=== PATIENT | female | born 1950 | race Caucasian/White ===

== ENCOUNTER → 2018-09-22 10:36 | Outpatient (CLI) | payer OTHER, SELFPAY ==
[2018-09-22 12:09] LABS: Add Manual Diff / Slide Review NO; Basophils Percent Auto 0.6 % (0-2); Eosinophils Percent Auto 1.4 % (2-4); Hematocrit 37.7 % (36-46); Lymphocytes Percent Auto 29.1 % (25-40); Mean Corpuscular HGB Conc 31.9 % (30-36); Mean Corpuscular Hemoglobin 20.6 PG (26-34); Mean Corpuscular Volume 64.7 fL (80-100); Monocytes Percent Auto 10.9 % (3-14); Neutrophils Absolute Auto 3800 /uL (3000-5900); Platelet Count 283 X10^3/uL (150-400); Red Blood Cell Count 5.82 X10^6/uL (4.0-5.2); Red Cell Distribution Width 16.2 % (11.6-14.8); White Blood Cell Count 6.6 X10^3/uL (4.5-11.0)
[2018-09-22 12:38] LABS: Alanine Aminotransferase 24 IU/L (9-52); Albumin 4.5 g/dL (3.5-5.0); Albumin Globulin Ratio 1.3 (1.0-2.8); Alkaline Phosphatase 76 U/L (38-126); Aspartate Aminotransferase 25 IU/L (14-36); BUN Creatinine Ratio 27.5 (6-22); Bilirubin Total 0.6 mg/dL (0.2-1.3); Blood Urea Nitrogen 22 mg/dL (7-17); Calcium 9.1 mg/dL (8.4-10.2); Carbon Dioxide 26 mmol/L (22-32); Chloride 105 mmol/L (98-107); Cholesterol 236 mg/dL (140-199); Estimated Glomerular Filt Rate > 60.0 mL/min (>60); Globulin 3.4 g/dL (1.7-4.1); Glucose 84 mg/dL (80-110); HDL Cholesterol 69 mg/dL (40-60); HEMOLYSIS < 15 (0-50); LDL Cholesterol Calculated 146 mg/dL (<100); Potassium 4.1 mmol/L (3.4-5.1); Sodium 143 mmol/L (137-145); Total Protein 7.9 g/dL (6.3-8.2); Triglycerides 104 mg/dL (35-150)
[2018-09-22 13:01] LABS: Anisocytosis 1+; Microcytosis 1+; RBC Morphology S
[2018-09-22 13:30] LABS: Thyroid Stimulating Hormone 2.21 uIU/mL (0.47-4.68)
== END ==
PROVIDERS: Family Provider Family Medicine; PCP Family Medicine; Visit Provider Family Medicine
DX: Z13.220 Encounter for screening for lipoid disorders (principal); Z87.09 Personal history of other diseases of the respiratory system
CPT/HCPCS: 80053; 80061; 84443; 85025

== ENCOUNTER → 2018-10-09 13:38 | Outpatient (CLI) | payer OTHER, SELFPAY | PROVIDERS: PCP Family Medicine; Visit Provider Family Medicine | DX: M81.0 Age-related osteoporosis without current pathological fracture (principal); Z78.0 Asymptomatic menopausal state | CPT/HCPCS: 77080 ==

== ENCOUNTER → 2019-05-24 14:37 | Outpatient (CLI) | payer MEDICARE, SELFPAY ==
[2019-05-26 19:46] LABS: Fecal Immunochemical Test NOT DETECTED (NOT DETECTED)
== END ==
PROVIDERS: PCP Family Medicine; Visit Provider Family Medicine
DX: Z12.11 Encounter for screening for malignant neoplasm of colon (principal)
CPT/HCPCS: 82274

== ENCOUNTER → 2019-09-03 16:31 | Outpatient (CLI) | payer MEDICARE, SELFPAY ==
--- NOTE | 2019-09-03 16:45 | DI.RAD.S_ITS ---
PROCEDURE: XR HIP W PEL IF DONE RT 2V INDICATIONS: chronic hip pain TECHNIQUE: AP pelvis with lateral view(s) of the right hip(s). COMPARISON: None. FINDINGS: Bones: No fractures or dislocations. Pelvic ring appears intact. No suspicious bony lesions. Lower lumbar spondylosis. Mild bilateral hip degeneration. Soft tissues: The visualized bowel gas pattern is normal. No suspicious soft tissue calcifications. IMPRESSION: Mild bilateral hip degeneration. If the patient's pain or other symptoms persist, consider further evaluation with MRI Lower lumbar spondylosis Dictated by: Kwaku Nelson M.D. on 09/03/2019 at 17:09 Approved by: Kwaku Nelson M.D. on 09/03/2019 at 17:11
== END ==
PROVIDERS: PCP Family Medicine; Visit Provider Family Medicine
DX: M25.551 Pain in right hip (principal); M16.0 Bilateral primary osteoarthritis of hip; M47.816 Spondylosis without myelopathy or radiculopathy, lumbar region
CPT/HCPCS: 73502

== ENCOUNTER → 2019-10-01 10:06 | Outpatient (CLI) | payer MEDICARE, SELFPAY ==
[2019-10-01 10:52] LABS: Add Manual Diff / Slide Review NO; Basophils Absolute Auto 0 /uL (0-100); Basophils Percent Auto 0.5 % (0-2); Eosinophils Absolute Auto 100 /uL (0-450); Eosinophils Percent Auto 1.4 % (2-4); Hematocrit 36.7 % (36-46); Hemoglobin 12.2 g/dL (12.0-16.0); Lymphocytes Absolute Auto 1900 /uL (1100-4500); Lymphocytes Percent Auto 31.6 % (25-40); Mean Corpuscular HGB Conc 33.2 % (30-36); Mean Corpuscular Hemoglobin 21.1 PG (26-34); Mean Corpuscular Volume 63.4 fL (80-100); Monocytes Absolute Auto 500 /uL (0-900); Monocytes Percent Auto 8.8 % (3-14); Neutrophils Absolute Auto 3400 /uL (1500-7000); Neutrophils Percent Auto 57.7 % (50-75); Platelet Count 267 X10^3/uL (150-400); Red Blood Cell Count 5.79 X10^6/uL (4.0-5.2); Red Cell Distribution Width 16.4 % (11.6-14.8); White Blood Cell Count 5.9 X10^3/uL (4.5-11.0)
[2019-10-01 11:12] LABS: Hypochromasia 1+; Microcytosis 2+
[2019-10-01 11:18] LABS: Alanine Aminotransferase 19 IU/L (<35); Albumin 4.5 g/dL (3.5-5.0); Albumin Globulin Ratio 1.4 (1.0-2.8); Alkaline Phosphatase 91 U/L (38-126); Aspartate Aminotransferase 28 IU/L (14-36); BUN Creatinine Ratio 23.8 (6-22); Bilirubin Total 0.7 mg/dL (0.2-1.3); Blood Urea Nitrogen 19 mg/dL (7-17); Calcium 9.5 mg/dL (8.4-10.2); Carbon Dioxide 26 mmol/L (22-32); Chloride 105 mmol/L (98-107); Estimated Glomerular Filt Rate > 60.0 mL/min (>60); Globulin 3.3 g/dL (1.7-4.1); Glucose 98 mg/dL (80-110); HEMOLYSIS < 15 (0-50); Potassium 4.3 mmol/L (3.4-5.1); Sodium 140 mmol/L (137-145); Total Protein 7.8 g/dL (6.3-8.2)
== END ==
PROVIDERS: PCP Family Medicine; Visit Provider Family Medicine
DX: D64.9 Anemia, unspecified (principal); D56.9 Thalassemia, unspecified
CPT/HCPCS: 36415; 80053; 85025

== ENCOUNTER 2019-10-08 13:54 | Emergency (ER) | payer MEDICARE, SELFPAY ==
[2019-10-08 14:02] VITALS: BP 149/88; PULSE 68; RESP 18; TEMP 36.5; O2SAT 18; BMI 23.8
--- NOTE | 2019-10-08 15:08 | PC.NURSE ---
patient states she has a cataract in L eye.
[2019-10-08] MEDS: ACETAMINOPHEN 325 MG TABLET 975 MG PO (15:46)
[2019-10-08] MEDS: PROPARACAINE 0.5% OPHTH SOL 1 DROPS EYE-RIGHT (15:47)
[2019-10-08] MEDS: FLUORESCEIN 1 MG STRIP EYE-RIGHT (15:47)
[2019-10-08 15:54] VITALS: BP 148/80; PULSE 74; RESP 18; O2SAT 100
[2019-10-08] MEDS: TET,DIPH,PERTUSS(ACELL),VAC/PF 0.5 ML SYRINGE IM (16:09)
--- NOTE | 2019-10-08 20:54 | ED.EYEPROB ---
HPI - Eye Problem <Felipe Cornejo [facility] - Last Filed: 10/08/19 21:02> General Chief complaint: Eye Problems Stated complaint: poked right eye with finger nail, redness, headach Time Seen by Provider: 10/08/19 15:17 Source: patient Mode of arrival: Family Vehicle Limitations: no limitations History of Present Illness HPI Narrative: This is a pleasant 68-year-old female, nonsmoker, who presents to ED after she accidentally poked her right eye while putting on makeup this morning at 11:30 a.m. Patient denies visual changes or decreased in vision. Patient usually wears glasses. Patient reports mild discomfort when patient closes her eyes forcefully and hard and denies foreign body sensation. Patient denies on blood thinner. Patient not sure last tetanus immunization. Patient reports seen by landscaping supervisor about 2 years ago after cataract surgery. Related Data Home Medications Medication Instructions Recorded Confirmed acyclovir 400 mg PO DAILY 10/08/19 10/08/19 sertraline [Zoloft] 75 mg PO DAILY 10/08/19 Previous Rx's Medication Instructions Recorded albuterol sulfate [Ventolin HFA] 2 puff INH SEE INSTRUCTIONS PRN #2 01/06/18 ea alprazolam 0.5 mg tablet 0.5 mg PO DAILY PRN #10 tab 09/09/19 Allergies Allergy/AdvReac Type Severity Reaction Status Date / Time No Known Drug Allergies Allergy Verified 10/08/19 14:07 Review of Systems <Felipe Cornejo [facility] - Last Filed: 10/08/19 21:02> Review of Systems Narrative: General: Denies fever, chills, fatigue, malaise, sweats. HEENT: See HPI. Denies sinus pain, ear pain, sore throat, difficulty swallowing, dizziness. Respiratory: Denies dyspnea, cough, wheezing, hemoptysis, sputum. Cardiovascular: Denies chest pain, palpitations, orthopnea, edema. Gastrointestinal: Denies nausea, vomiting, abdominal pain, diarrhea, constipation, melena. : Denies dysuria, frequency, incontinence, hematuria, urinary retention. Musculoskeletal: Denies weakness, joint pain or bony pain. Skin: Denies rash, skin lesions, or other. Neurologic: Denies weakness, headache, numbness, change in speech, confusion, seizures, incoordination. Psychiatric: No concerning psychosocial issues. 12-point review of systems is negative except for those stated above. Patient History <GILL Cox - Last Filed: 10/08/19 21:02> Medical History Chicken pox (Resolved) Generalized anxiety disorder (Acute) Hemorrhoid (Chronic ~1999) Herpes (Resolved) Measles (Resolved) Osteoarthritis (Chronic ~1999) Osteopenia (Chronic ~1999) Ovarian cyst (Chronic ~1994) Thalassemia (Chronic ~1949) Surgical History Anesthesia (Resolved) Status post appendectomy (~1956) Family History Father Cancer Mother Diabetes mellitus Heart disease Grandfather Stroke Grandmother Cancer Sister Ovarian cancer Social History marital status: occupational status: previously employed Smoking Status: Never smoker alcohol intake: current substance use type: does not use Smoking Status: Never smoker alcohol intake frequency: 0-2 drinks per day Alcohol type: beer, wine and hard liquor Substance Use Type: does not use Exam <GILL Cox - Last Filed: 10/08/19 21:02> Narrative Exam Narrative: General appearance: well developed, well nourished, in no acute distress. Head: normocephalic, atraumatic, no scalp lesions, non-tender. ENT: R inner corner subconjunctiva hemorrhage appreciated. Visual acuity right eye 20/30, left eye 20/100, bilateral 20/40. There is no uptake with the fluorescein staining with Wood's lamp examination. IOP average 18. Bilateral auditory canals and tympanic membranes clear. Hearing grossly intact. Nose without bleeding, purulent discharge, septal hematoma or deviation. Turbinate without erythema or swelling. Facial sinuses nontender to palpate. Mucous membrane moist, no mucosal lesion. Throat without erythema, tonsillar hypertrophy or exudate. Uvula in midline, airway patent. Neck/Thyroid: neck supple, full range of motion, no visible masses or meningeal signs. No JVD, non-tender without lymphadenopathy. Skin: no suspicious rashes, lesions over visible areas. Warm and dry and appropriate color for ethnicity. Heart: no clubbing, no cyanosis, no edema. S1 and S2 normal. RRR w/o murmurs, clicks, or bruits. Lungs: Breathing even and unlabored. No stridor. No accessory muscles used. Able to speak in full sentences. Chest: normal shape and expansion. Abdomen: non-obese, non-distended. Neurologic: alert and oriented. Cognitive exam, PHARMACEUTICAL OFFICER and PNS grossly intact on informal exam. Psych: good eye contact, normal affect. Initial Vital Signs Initial Vital Signs: Vital Signs Temperature 97.7 F 10/08/19 14:02 Pulse Rate 68 10/08/19 14:02 Respiratory Rate 18 10/08/19 14:02 Blood Pressure 149/88 H 10/08/19 14:02 Pulse Oximetry 18 L 10/08/19 14:02 <Nunu Orellana DO - Last Filed: 10/09/19 07:22> Initial Vital Signs Initial Vital Signs: Vital Signs Temperature 97.7 F 10/08/19 14:02 Pulse Rate 68 10/08/19 14:02 Respiratory Rate 18 10/08/19 14:02 Blood Pressure 149/88 H 10/08/19 14:02 Pulse Oximetry 18 L 10/08/19 14:02 Course <GILL Cox - Last Filed: 10/08/19 21:02> Orders Ordered: Discontinued Medications Acetaminophen (Tylenol) 975 mg PO NOW ONE Stop: 10/08/19 15:33 Last Admin: 10/08/19 15:46 Dose: 975 mg Documented by: MATTY Diphtheria/Tetanus/Acell Pertussis (Adacel) 0.5 ml IM .ONCE ONE Stop: 10/08/19 15:53 Last Admin: 10/08/19 16:09 Dose: 0.5 ml Documented by: MATTY Fluorescein Sodium (Ful-Sarah) 1 mg EYE-RIGHT NOW ONE Stop: 10/08/19 15:33 Last Admin: 10/08/19 15:47 Dose: 1 mg Documented by: MATTY Proparacaine HCl (Parcaine 0.5% Ophth Marielle) 1 drops EYE-RIGHT NOW ONE Stop: 10/08/19 15:33 Last Admin: 10/08/19 15:47 Dose: 1 drop Documented by: MATTY Vital Signs Vital signs: Vital Signs - 8 hr 10/08/19 14:02 10/08/19 15:54 Temperature 97.7 F Pulse Rate 68 74 Respiratory Rate 18 18 Blood Pressure 149/88 H Blood Pressure [Left Arm] 148/80 H Pulse Oximetry 18 L 100 <Nunu Orellana DO - Last Filed: 10/09/19 07:22> Orders Ordered: Discontinued Medications Acetaminophen (Tylenol) 975 mg PO NOW ONE Stop: 10/08/19 15:33 Last Admin: 10/08/19 15:46 Dose: 975 mg Documented by: MATTY Diphtheria/Tetanus/Acell Pertussis (Adacel) 0.5 ml IM .ONCE ONE Stop: 10/08/19 15:53 Last Admin: 10/08/19 16:09 Dose: 0.5 ml Documented by: MATTY Fluorescein Sodium (Ful-Sarah) 1 mg EYE-RIGHT NOW ONE Stop: 10/08/19 15:33 Last Admin: 10/08/19 15:47 Dose: 1 mg Documented by: MATTY Proparacaine HCl (Parcaine 0.5% Ophth Marielle) 1 drops EYE-RIGHT NOW ONE Stop: 10/08/19 15:33 Last Admin: 10/08/19 15:47 Dose: 1 drop Documented by: MATTY Vital Signs Vital signs: Vital Signs - 8 hr 10/08/19 14:02 10/08/19 15:54 Temperature 97.7 F Pulse Rate 68 74 Respiratory Rate 18 18 Blood Pressure 149/88 H Blood Pressure [Left Arm] 148/80 H Pulse Oximetry 18 L 100 MDM - Eye Problem <GILL Cox - Last Filed: 10/08/19 21:02> Differential Diagnosis Differential diagnosis: Likely corneal abrasion, hyphema and subconjunctival hemorrhage Medical Records Attestation: I reviewed the patient's medical records. [facility] Narrative Medical decision making narrative: This is a pleasant 68-year-old female presents to ED with right inner corner eye with subconjunctival hemorrhage. Visual acuity is intact and patient denies changes in vision. Patient is not currently on anticoagulant. There's no fluorescein uptake with the Wood's lamp examination indicating corneal abrasion. Physical exam is not consistent with hyphema. Patient denies eye discomfort unless when she closes her eyes forcefully and tightly. Normal IOP. Patient advised to use Tylenol as needed for discomfort and use intermittent cool compress next couple of days. Patient advised to avoid NSAIDs use for pain. Return precautions were discussed with patient and advised to follow up with landscaping supervisor/concrete mixer truck driver if there is any changes or other concerns. Patient verbalized understanding and agrees with the treatment plan. Discharge Plan Departure Patient Disposition: Home Clinical Impression: Subconjunctival hemorrhage of right eye Trauma to eye, right Qualifiers: Encounter type: initial encounter Qualified Code(s): S05.91XA - Unspecified injury of right eye and orbit, initial encounter Discharge Date/Time: 10/08/19 16:17 Instructions: DI for Subconjunctival Hemorrhage Activity Restrictions/Additional Instructions: You have been diagnosed with [subconjunctival R eye bleed. Wood lamp test does not show abrasion. You were medicated with Tylenol while in ED. Your Eye pressur was good and within angela. You can use cool packs for next couple of days on affected eye. Try to avoid aspirin or NSAID for discomfort]. What to do: *Take your medications as directed. *Follow up with your primary care provider and concrete mixer truck driver in 2-3 days, call for an appointment. Let them know you were seen in the ED and that we asked you to be seen in follow up. *Return to ED if you have any new, worsening, or concerning symptoms, such as [decrease vision, increasing eye discharge, discomfort, fever, redness spreading to eye leads and face, or any acute concerns]. Prescriptions: No Action albuterol sulfate [Ventolin HFA] 90 MCG/PUFF HFA aerosol inhaler 2 puff INH SEE INSTRUCTIONS PRNQty: 2 RF: 3 alprazolam 0.5 mg tablet 0.5 mg PO DAILY PRN (Reason: flying) Qty: 10 RF: 0 acyclovir 400 mg tablet 400 mg PO DAILY RF: 0 sertraline [Zoloft] 50 mg tablet 75 mg PO DAILY RF: 0 Referrals: Damaris Garcia DO [Primary Care Provider] -
== END 2019-10-08 16:17 | disposition home or self-care (01) ==
PROVIDERS: Emergency Provider Nurse Practitioner Family; PCP Family Medicine
DX: S05.91XA Unspecified injury of right eye and orbit, initial encounter (principal); H11.31 Conjunctival hemorrhage, right eye; Z23 Encounter for immunization
CPT/HCPCS: 90471; 99282; 99283; 90715

== ENCOUNTER → 2020-11-14 13:44 | Outpatient (CLI) | payer MEDICARE, SELFPAY ==
[2020-11-14] MEDS: COVID-19 VACC #1, MRNA(MOD) 100 MCG/0.5 ML VIAL IM (13:53)
== END ==
PROVIDERS: PCP Family Medicine; Visit Provider Internal Medicine
DX: Z23 Encounter for immunization (principal)
CPT/HCPCS: 0011A; 91301

== ENCOUNTER → 2020-12-12 14:11 | Outpatient (CLI) | payer MEDICARE, SELFPAY ==
[2020-12-12] MEDS: COVID-19 VACC #2, MRNA(MOD) 100 MCG/0.5 ML VIAL IM (14:13)
== END ==
PROVIDERS: PCP Family Medicine; Visit Provider Internal Medicine
DX: Z23 Encounter for immunization (principal)
CPT/HCPCS: 0012A; 91301

== ENCOUNTER → 2021-01-31 07:59 | Outpatient (CLI) | payer MEDICARE, SELFPAY ==
--- NOTE | 2021-01-31 08:01 | DI.MG.S_ITS ---
BILATERAL DIGITAL SCREENING MAMMOGRAM 3D/2D WITH CAD: 01/31/2021 CLINICAL: Routine screening. Comparison is made to exams dated: 11/18/2016 mammogram - [facility] and 10/09/2015 mammogram - [facility]. There are scattered fibroglandular elements in both breasts. Current study was also evaluated with a Computer Aided Detection (CAD) system. No significant masses, calcifications, or other findings are seen in either breast. There has been no significant interval change. IMPRESSION: NEGATIVE There is no mammographic evidence of malignancy. A 1 year screening mammogram is recommended. This exam was interpreted at Station ID: [id number]. NOTE: For mammograms, a report in lay terms will be sent to the patient. Approximately 15% of breast malignancies will not be visualized mammographically. In the management of a palpable breast mass, a negative mammogram must not discourage biopsy of a clinically suspicious lesion. Electronically Signed By: Chuckie mckeon/frederick:01/31/2021 11:18:47 letter sent: Normal Exam ACR BI-RADS Category 1: Negative 3341F
--- NOTE | 2021-01-31 08:01 | DI.RAD.S_ITS ---
PROCEDURE: XR DEXA AXIAL SKELETON INDICATIONS: osteporosis COMPARISON: [facility], CR, XR DEXA AXIAL SKELETON, 10/09/2018, 13:54. FINDINGS: This blank DEXA report has been sent in error by the PACS system. The correct and complete report will be forthcoming in 1-2 days. Thank you for your patience and understanding. Dictated by: Sara Carreno MD, PhD on 01/31/2021 at 17:03 Approved by: Sara Carreno MD, PhD on 01/31/2021 at 17:04
[2021-01-31 09:01] LABS: Add Manual Diff / Slide Review NO; Basophils Absolute Auto 0 /uL (0-100); Basophils Percent Auto 0.6 % (0-2); Eosinophils Absolute Auto 100 /uL (0-450); Eosinophils Percent Auto 1.7 % (2-4); Hematocrit 36.7 % (36-46); Hemoglobin 11.8 g/dL (12.0-16.0); Lymphocytes Absolute Auto 1900 /uL (1100-4500); Lymphocytes Percent Auto 27.5 % (25-40); Mean Corpuscular HGB Conc 32.2 % (30-36); Mean Corpuscular Hemoglobin 20.7 PG (26-34); Mean Corpuscular Volume 64.3 fL (80-100); Monocytes Absolute Auto 700 /uL (0-900); Monocytes Percent Auto 9.7 % (3-14); Neutrophils Absolute Auto 4200 /uL (1500-7000); Neutrophils Percent Auto 60.5 % (50-75); Red Cell Distribution Width 16.8 % (11.6-14.8)
[2021-01-31 09:05] LABS: Alanine Aminotransferase 22 IU/L (<35); Albumin 4.3 g/dL (3.5-5.0); Albumin Globulin Ratio 1.3 (1.0-2.8); Alkaline Phosphatase 85 U/L (38-126); Aspartate Aminotransferase 33 IU/L (14-36); BUN Creatinine Ratio 23.6 (6-22); Bilirubin Total 0.4 mg/dL (0.2-1.3); Blood Urea Nitrogen 21 mg/dL (7-17); Calcium 9.2 mg/dL (8.4-10.2); Carbon Dioxide 26 mmol/L (22-32); Chloride 104 mmol/L (98-107); Cholesterol 247 mg/dL (140-199); Estimated Glomerular Filt Rate > 60.0 mL/min (>60); Globulin 3.3 g/dL (1.7-4.1); Glucose 96 mg/dL (80-110); HDL Cholesterol 70 mg/dL (40-60); HEMOLYSIS < 15 (0-50); LDL Cholesterol Calculated 159 mg/dL (<100); Potassium 4.2 mmol/L (3.4-5.1); Sodium 138 mmol/L (137-145); Total Protein 7.6 g/dL (6.3-8.2); Triglycerides 88 mg/dL (35-150)
[2021-01-31 09:57] LABS: Basophilic Stippling 2+; Microcytosis 3+; Platelet Count 279 X10^3/uL (150-400); Polychromasia 1+
== END ==
PROVIDERS: PCP Family Medicine; Referring Provider Family Medicine; Visit Provider Family Medicine
DX: Z12.31 Encounter for screening mammogram for malignant neoplasm of breast (principal); M81.0 Age-related osteoporosis without current pathological fracture; Z78.0 Asymptomatic menopausal state; E78.5 Hyperlipidemia, unspecified; D56.9 Thalassemia, unspecified; Z13.1 Encounter for screening for diabetes mellitus
CPT/HCPCS: 36415; 77063; 77067; 77080; 80053; 80061; 85025

== ENCOUNTER → 2021-02-19 15:13 | Outpatient (CLI) | payer MEDICARE, SELFPAY ==
[2021-02-20 11:21] LABS: Fecal Immunochemical Test Positive (Negative)
== END ==
PROVIDERS: PCP Family Medicine; Referring Provider Family Medicine; Visit Provider Family Medicine
DX: Z12.11 Encounter for screening for malignant neoplasm of colon (principal)
CPT/HCPCS: 82274

== ENCOUNTER → 2021-04-02 11:02 | Outpatient (CLI) | payer MEDICARE, SELFPAY ==
[2021-04-02 12:02] LABS: COVID19 -Nasal RAPID Negative (Negative)
== END ==
PROVIDERS: PCP Family Medicine; Visit Provider Surgery
DX: Z20.822 Contact with and (suspected) exposure to COVID-19 (principal)
CPT/HCPCS: 87635; C9803

== ENCOUNTER 2021-04-03 14:09 | Day surgery (SDC) | payer MEDICARE, SELFPAY ==
--- NOTE | 2021-04-03 | PATH_ITS ---
[facility] Accession Number: [id number] . 01 Material submitted: . colon - POLYP AT 55CM . 01 Clinical history: . DX COLONOSCOPY UNDER GENERAL . 02 Diagnosis: Colon, Polyp at 55 cm, Biopsy: Colonic mucosa with no diagnostic abnormality, consistent with polypoid redundancy. Additional levels were examined. Negative for dysplasia and malignancy. MRV 04/06/2021 1349 Local . 02 Electronically signed: . Emmie Bolaños MD, Pathologist NPI- [id number] . 01 Gross description: . POLYP AT 55CM: Received in formalin is 1 fragment(s) of ceron, soft tissue measuring 0.4 x 0.3 x 0.2 cm submitted entirely in 1 cassette(s) /CHERRIE 04/04/2021 0543 Local . 02 Pathologist provided ICD-10: K63.5 . 02 CPT . 914512 Performed at: 01 [facility] [address] [facility] [place], [place], [place] [id number] MD Jimmy Pires MD Phone: [phone] Performed at: 02 [facility] [address] [place], [place] [id number] MD Emmie Bolaños MD Phone: [phone]
[2021-04-03 14:28] VITALS: BP 142/92; PULSE 103; RESP 16; TEMP 36.8; O2SAT 98; BMI 23.0
[2021-04-03] MEDS: SODIUM CHLORIDE 0.9% 1,000 ML 200 ML IV (14:42)
--- NOTE | 2021-04-03 14:54 | PM.PREOP ---
Pre-operative Note COVID-19 COVID-19 status: Negative Result date/Date tested (Pos, Neg/Pending): 04/03/21 Interval Note History & Physical reviewed/Exam performed by Physician: Yes Changes to H&P: No H&P completed within 30 days and has changed as indicated here:: Anesthesiologist consulted for deep sedation with propofol due to patient's inability to be properly sedated under conscious sedation with fentanyl and versed during past procedures.
--- NOTE | 2021-04-03 15:08 | PM.OP.ENDO ---
Operative Date/Time/Diagnoses Date of procedure: 04/03/21 Time of procedure: 15:08 Pre-op diagnosis: positive FIT test Post-op diagnosis: other (Single small polyp at 55 cm, diverticulosis) Procedure & Clinicians Study performed: Colonoscopy Polypectomy Jumbo forceps Same procedure as scheduled: Yes Indications: Positive FIT test Surgeon: Елена Awad Procedure Notes SCOAP/Timeout: Performed Procedure in detail: The patient was brought to the room and placed in left lateral decubitus position with all bony prominences padded. A time-out was performed and then the patient was given deep sedation and monitored anesthesia care by Dr. Alford. Once adequately sedated, the procedure was begun. A rectal exam was performed revealing no abnormalities. The colonoscope was then introduced to the rectum and advanced to the cecum in the usual fashion. The cecum was identified by the appendiceal orifice, the mucosal tri-fold, and the ileocecal valve. The scope was then retracted while rotating side to side and examining each mucosal fold. A small polyp was seen at 55 cm and removed Jumbo forceps. At the conclusion of the procedure retroflexion was performed and small grade 1-2 internal hemorrhoids without stigmata of bleeding were seen. Multiple hemorrhoidal skin tags were seen. The scope was then withdrawn from the rectum the procedure was concluded. The patient tolerated the procedure well and was transferred to the PACU in stable condition. Scope withdrawal time: 8 Findings: polyp Specimen(s): other (Polyp from 55 cm) Complications: none Impression: Diverticulosis, single small polyp Post-procedure Recommendations: Colonscopy in 10 years and High fiber diet (Consider adding a fiber supplement to prevent formation of more diverticula) Follow up: as needed Disposition: PACU
[2021-04-03 15:39] VITALS: BP 86/59; PULSE 77; RESP 12; TEMP 36.2; O2SAT 96
[2021-04-03 15:44] VITALS: BP 99/65; PULSE 72; RESP 13; O2SAT 96
--- NOTE | 2021-04-03 15:51 | SUR.PHASEI ---
Hand off report to Mathieu Melendez RN, pt comfortable, drinking fluids, denies pain
[2021-04-03 15:59] VITALS: BP 152/52; PULSE 72; RESP 20; TEMP 36.6; O2SAT 99
[2021-04-03 16:02] VITALS: BP 144/85; PULSE 66; RESP 15; TEMP 36.4; O2SAT 100
--- NOTE | 2021-04-03 16:13 | SUR.PHASEII ---
Pt ready to go, d/c instructions discussed, pt left when ready and in stable condition.
== END 2021-04-03 16:27 | disposition home or self-care (01) ==
PROVIDERS: PCP Family Medicine; Referring Provider Surgery; Visit Provider Surgery
PROC: 0DJD8ZZ Inspection of Lower Intestinal Tract, Via Natural or Artificial Opening Endoscopic (ICD-10-PCS; CPT 45378; principal; 2021-04-03 15:15)
DX: R19.5 Other fecal abnormalities (principal); F41.9 Anxiety disorder, unspecified; F32.9 Major depressive disorder, single episode, unspecified; D64.9 Anemia, unspecified; M81.0 Age-related osteoporosis without current pathological fracture; K57.30 Diverticulosis of large intestine without perforation or abscess without bleeding; K63.5 Polyp of colon
CPT/HCPCS: 45380; J2704; J3010

== ENCOUNTER → 2022-09-30 15:28 | Outpatient (CLI) | payer MEDICARE, SELFPAY ==
--- NOTE | 2022-09-30 15:29 | DI.RAD.S_ITS ---
PROCEDURE: XR SHOULDER RT MIN 2V INDICATIONS: Acute shoulder pain, fall TECHNIQUE: Three views of the shoulder were acquired. COMPARISON: None. FINDINGS: Bones: No fractures or dislocations. No suspicious bony lesions. Visualized ribs appear intact. Soft tissues: Faint ossification adjacent to the greater tuberosity, potentially calcific tendinitis. Questionable ossification projects over the glenohumeral joint. IMPRESSION: 1. No visible fracture, dislocation, or separation. 2. Possible calcific tendinitis. 3. Questionable osseous intra-articular fragment. Dictated by: Tasneem Miller M.D. on 09/30/2022 at 17:43 Approved by: Tasneem Miller M.D. on 09/30/2022 at 17:46
== END ==
PROVIDERS: PCP Family Medicine; Referring Provider Family Medicine; Visit Provider Family Medicine
DX: M25.511 Pain in right shoulder (principal)
CPT/HCPCS: 73030

== ENCOUNTER → 2022-10-29 08:58 | Outpatient (CLI) | payer MEDICARE, SELFPAY ==
[2022-10-29 10:11] LABS: Add Manual Diff / Slide Review NO; Basophils Absolute Auto 0 /uL (0-100); Basophils Percent Auto 0.3 % (0-2); Eosinophils Absolute Auto 100 /uL (0-450); Eosinophils Percent Auto 1.8 % (2-4); Hematocrit 38.7 % (36-46); Hemoglobin 12.3 g/dL (12.0-16.0); Lymphocytes Absolute Auto 2200 /uL (1100-4500); Lymphocytes Percent Auto 36.6 % (25-40); Mean Corpuscular HGB Conc 31.7 % (30-36); Mean Corpuscular Hemoglobin 20.3 PG (26-34); Mean Corpuscular Volume 64.1 fL (80-100); Monocytes Absolute Auto 500 /uL (0-900); Monocytes Percent Auto 8.5 % (3-14); Neutrophils Absolute Auto 3200 /uL (1500-7000); Neutrophils Percent Auto 52.8 % (50-75); Platelet Count 260 X10^3/uL (150-400); Red Blood Cell Count 6.03 X10^6/uL (4.0-5.2); Red Cell Distribution Width 15.7 % (11.6-14.8); White Blood Cell Count 6.1 X10^3/uL (4.5-11.0)
[2022-10-29 10:22] LABS: Anisocytosis 1+
[2022-10-29 10:34] LABS: Alanine Aminotransferase 19 IU/L (<35); Albumin 4.5 g/dL (3.5-5.0); Albumin Globulin Ratio 1.4 (1.0-2.8); Alkaline Phosphatase 94 U/L (38-126); Aspartate Aminotransferase 25 IU/L (14-36); BUN Creatinine Ratio 18.9 (6-22); Bilirubin Total 0.7 mg/dL (0.2-1.3); Blood Urea Nitrogen 14 mg/dL (7-17); Calcium 8.9 mg/dL (8.4-10.2); Carbon Dioxide 23 mmol/L (22-32); Chloride 103 mmol/L (98-107); Estimated Glomerular Filt Rate > 60 mL/min (>60); Globulin 3.3 g/dL (1.7-4.1); Glucose 86 mg/dL (80-110); HEMOLYSIS < 15 (0-50); Potassium 3.9 mmol/L (3.4-5.1); Sodium 137 mmol/L (137-145); Total Protein 7.8 g/dL (6.3-8.2)
== END ==
PROVIDERS: PCP Family Medicine; Referring Provider Family Medicine; Visit Provider Family Medicine
DX: D56.9 Thalassemia, unspecified (principal); F32.9 Major depressive disorder, single episode, unspecified; M81.0 Age-related osteoporosis without current pathological fracture; Z00.00 Encounter for general adult medical examination without abnormal findings
CPT/HCPCS: 36415; 80053; 85025

== ENCOUNTER → 2023-01-07 14:32 | Outpatient (CLI) | payer MEDICARE, OTHER, SELFPAY ==
[2023-01-07 15:19] LABS: HEMOLYSIS < 15 (0-50); Iron 81 ug/dL (37-170)
[2023-01-07 15:31] LABS: Percent Iron Saturation 26 % (15-50); Total Iron Binding Capacity 310 ug/dL (265-497); Transferrin 246 mg/dL (206-381)
[2023-01-07 15:41] LABS: T4 Total Thyroxine 7.11 ug/dL (5.5-11.0); Triiodothryronine T3 Uptake 33.5 % (23.5-40.5)
[2023-01-07 15:56] LABS: Ferritin 67 ng/mL (11-264)
== END ==
PROVIDERS: PCP Family Medicine; Referring Provider Dermatology; Visit Provider Dermatology
DX: L65.9 Nonscarring hair loss, unspecified (principal)
CPT/HCPCS: 36415; 82728; 83540; 83550; 84436; 84439; 84443; 84479

== ENCOUNTER → 2024-04-30 08:42 | Outpatient (CLI) | payer MEDICARE, SELFPAY ==
[2024-04-30 09:32] LABS: Add Manual Diff / Slide Review NO; Basophils Absolute Auto 0 /uL (0-100); Basophils Percent Auto 0.5 % (0-2); Eosinophils Absolute Auto 100 /uL (0-450); Eosinophils Percent Auto 2.3 % (2-4); Hematocrit 36.5 % (36-46); Hemoglobin 11.6 g/dL (12.0-16.0); Lymphocytes Absolute Auto 1700 /uL (1100-4500); Lymphocytes Percent Auto 28.8 % (25-40); Mean Corpuscular HGB Conc 31.7 % (30-36); Mean Corpuscular Hemoglobin 20.3 PG (26-34); Monocytes Absolute Auto 600 /uL (0-900); Monocytes Percent Auto 9.6 % (3-14); Neutrophils Absolute Auto 3500 /uL (1500-7000); Neutrophils Percent Auto 58.8 % (50-75); Platelet Count 263 X10^3/uL (150-400); Red Blood Cell Count 5.71 X10^6/uL (4.0-5.2); Red Cell Distribution Width 16.6 % (11.6-14.8); White Blood Cell Count 5.9 X10^3/uL (4.5-11.0)
[2024-04-30 09:55] LABS: Anisocytosis 2+
[2024-04-30 09:56] LABS: Microcytosis 2+
[2024-04-30 09:57] LABS: Alanine Aminotransferase 18 IU/L (<35); Albumin 4.5 g/dL (3.5-5.0); Albumin Globulin Ratio 1.5 (1.0-2.8); Alkaline Phosphatase 97 U/L (38-126); Aspartate Aminotransferase 28 IU/L (14-36); BUN Creatinine Ratio 33.8 (6-22); Bilirubin Total 0.7 mg/dL (0.2-1.3); Blood Urea Nitrogen 23 mg/dL (7-17); Carbon Dioxide 24 mmol/L (22-32); Chloride 109 mmol/L (98-107); Cholesterol 255 mg/dL (140-199); Estimated Glomerular Filt Rate > 60 mL/min (>60); Globulin 3.1 g/dL (1.7-4.1); Glucose 90 mg/dL (80-110); HDL Cholesterol 73 mg/dL (40-60); HEMOLYSIS 17 (0-50); LDL Cholesterol Calculated 152 mg/dL (<100); Potassium 4.6 mmol/L (3.4-5.1); Sodium 140 mmol/L (137-145); Total Protein 7.6 g/dL (6.3-8.2); Triglycerides 148 mg/dL (35-150)
[2024-04-30 10:27] LABS: TSH w/ Reflex to FT4 2.27 uIU/mL (0.47-4.68)
== END ==
PROVIDERS: PCP Student in an Organized Health Care Education/Training Program; Referring Provider Student in an Organized Health Care Education/Training Program; Visit Provider Student in an Organized Health Care Education/Training Program
DX: Z13.228 Encounter for screening for other metabolic disorders (principal); K59.00 Constipation, unspecified; F41.1 Generalized anxiety disorder
CPT/HCPCS: 36415; 80053; 80061; 84443; 85025

== ENCOUNTER → 2024-05-10 12:52 | Outpatient (CLI) | payer MEDICARE, SELFPAY ==
--- NOTE | 2024-05-10 12:53 | DI.RAD.S_ITS ---
PROCEDURE: XR DEXA AXIAL SKELETON INDICATIONS: bone density scan COMPARISON: [facility], , XR DEXA AXIAL SKELETON, 01/31/2021, 9:33. [facility], CR, XR DEXA AXIAL SKELETON, 10/09/2018, 13:54. FINDINGS: Lumbar Spine (L4 excluded due to increased density): Bone mineral density 0.824 g/cm2, T score -1.8, previously -1.5 Left Hip: Bone mineral density 0.710 g/cm2, T score -1.9, previously 2.2. Left Femoral Neck: Bone mineral density 0.580 g/cm2, T score -2.4, previously -2.5. Right Hip: Bone mineral density 0.632 g/cm2, T score 8th 2.5, previously -2.5. Right Femoral Neck: Bone mineral density 0.523 g/cm2, T score -2.9, previously -2.8. Fracture Risk Calculation (when applicable): Not reported due to osteoporosis. (T score greater or equal to -1.0 to: NORMAL) (T score from -1.1 to -2.4: OSTEOPENIA) (T score less than or equal to -2.5: OSTEOPOROSIS) IMPRESSION: Osteoporosis. Follow-up guidelines as follows: Osteoporosis: Consider a repeat DEXA and Vertebral Fracture Assessment (VFA) exam in 2 years or sooner if medically necessary, to reassess this patient's status. Osteopenia: Consider a repeat DEXA in 2-3 years to reassess this patient's status, or if there is a new clinical indication. Normal: Consider a repeat DEXA in 5 years or sooner, or if there is a new clinical indication. All treatment decisions require clinical judgment and consideration of individual patient factors, including patient preferences, comorbidities, previous drug use, risk factors not captured in the FRAX model (e.g., frailty, falls, vitamin D deficiency, increased bone turnover, interval significant decline in bone density ) and possible under- or over-estimation of fracture risk by FRAX. In addition, the NOF Guide recommends that FDA-approved medical therapies be considered in postmenopausal women and men age >= 50 years with a: * Hip or vertebral (clinical or morphometric) fracture * T-score of <=-2.5 at the spine or hip * Ten-year fracture probability by FRAX of >= 3% for hip fracture or >=20% for major osteoporotic fracture. People with diagnosed cases of osteoporosis or at high risk for fracture should have regular bone mineral density tests. For patients eligible for Medicare, routine testing is allowed once every 2 years. The testing frequency can be increased to one year for patients who have rapidly progressing disease, those who are receiving or discontinuing medical therapy to restore bone mass, or have additional risk factors. Dictated by: Yaniv Smiley M.D. on 05/10/2024 at 16:14 Approved by: Yaniv Smiley M.D. on 05/10/2024 at 16:15
--- NOTE | 2024-05-10 12:53 | DI.MG.S_ITS ---
BILATERAL DIGITAL SCREENING MAMMOGRAM 3D/2D WITH CAD: 05/10/2024 CLINICAL: Routine screening. Comparison is made to exams dated: 01/31/2021 mammogram, 11/18/2016 mammogram - [facility], and 10/09/2015 mammogram - [facility]. There are scattered areas of fibroglandular density in both breasts (category b / 25%-50% glandular tissue). Current study was also evaluated with a Computer Aided Detection (CAD) system. No significant masses, calcifications, or other findings are seen in either breast. There has been no significant interval change. IMPRESSION: NEGATIVE There is no mammographic evidence of malignancy. A 1 year screening mammogram is recommended. Based on the Tyrer Cuzick model (a risk assessment model) the patient's lifetime risk is 5.0% and her 10 year risk is 4.5%. According to the ACR, ACS, and NCCN guidelines, an annual breast MRI exam along with mammogram is recommended if the patient's lifetime risk is 20% or greater. This exam was interpreted at Station ID: [id number]. NOTE: For mammograms, a report in lay terms will be sent to the patient. Approximately 15% of breast malignancies will not be visualized mammographically. In the management of a palpable breast mass, a negative mammogram must not discourage biopsy of a clinically suspicious lesion. Electronically Signed By: Cecile Hilton M.D., Ph.D. emi/frederick:05/10/2024 16:28:08 letter sent: Normal Exam ACR BI-RADS Category 1: Negative 3341F
--- NOTE | 2024-05-10 13:00 | DI.US.S_ITS ---
PROCEDURE: US PELVIC COMPLETE INDICATIONS: Family hx of ovarian cancer, Constipation TECHNIQUE: Real-time scanning was performed of the pelvic organs, with image documentation. Additional endovaginal scanning was necessary due to incomplete visualization of the adnexal and endometrial structures by transabdominal scanning. COMPARISON: None. FINDINGS: Uterus: Uterus is anteverted and normal in size at 4.2 x 3.2 x 1.9 cm. The myometrium is homogeneous. The endometrium measures 2 mm combined thickness. Anechoic fluid in the endometrial canal. Ovaries: The right ovary is not seen. The left ovary measures 2.3 x 1.7 x 1.5 cm, with a calculated ovarian volume of 3 cc. Left ovarian simple cyst measuring 0.9 cm. No mass. Flow seen in the left ovary. Other: No pathologic free abdominal or pelvic fluid. IMPRESSION: 1. Endometrium measures 2 mm. Anechoic fluid in the endometrial canal. 2. Simple left ovarian cyst measuring 0.9 cm. Right ovary is not seen. We strive to produce accurate, complete, and clear reports of imaging services. To assist us in improving patient care, this report was composed using standard report templates and voice recognition software. Therefore, it may contain abnormal punctuation, insertions and/or omissions. Occasional wrong-word or sound-alike substitutions may occur. Though we review the report and make efforts to correct it, we do recommend that the report be read carefully in proper context to recognize any text inaccuracies. Dictated by: Chuckie Love M.D. on 05/10/2024 at 22:08 Approved by: Chuckie Love M.D. on 05/10/2024 at 22:11
== END ==
PROVIDERS: PCP Student in an Organized Health Care Education/Training Program; Referring Provider Student in an Organized Health Care Education/Training Program; Visit Provider Student in an Organized Health Care Education/Training Program
DX: Z12.31 Encounter for screening mammogram for malignant neoplasm of breast; R92.323 Mammographic fibroglandular density, bilateral breasts; K59.00 Constipation, unspecified; N83.292 Other ovarian cyst, left side; Z80.41 Family history of malignant neoplasm of ovary; M81.0 Age-related osteoporosis without current pathological fracture; Z91.89 Other specified personal risk factors, not elsewhere classified
CPT/HCPCS: 76830; 76856; 77063; 77067; 77080

== ENCOUNTER → 2025-09-22 11:40 | Outpatient (CLI) | payer MEDICARE, OTHER, SELFPAY ==
--- NOTE | 2025-09-22 11:42 | DI.RAD.S_ITS ---
PROCEDURE: XR FINGER RT MIN 2V INDICATIONS: pulled popped middle finger near MCP TECHNIQUE: AP hand, 2 views of the 3rd finger(s) acquired. COMPARISON: None. FINDINGS: Bones: No fractures or dislocations. There is moderately severe degenerative osteoarthritic change, most prominent along the interphalangeal joints at the 3rd PIP joint and also the 2nd distal interphalangeal joint. Slightly less degeneration is seen at the 1st interphalangeal joint and elsewhere. Relatively severe osteoarthritic changes seen at the base of the 1st metacarpal as it articulates against the trapezium. No suspicious bony lesions. Soft tissues: No suspicious soft tissue calcifications. IMPRESSION: No trauma found. No erosive arthritis seen. Moderately severe to severe degenerative osteoarthritic change as noted, most pronounced at the base of the 1st metacarpal. Dictated by: Ralph Candelario M.D. on 09/22/2025 at 12:18 Approved by: Ralph Candelario M.D. on 09/22/2025 at 12:20
== END ==
PROVIDERS: PCP Student in an Organized Health Care Education/Training Program; Referring Provider Physician Assistant; Visit Provider Physician Assistant
DX: S69.92XA Unspecified injury of left wrist, hand and finger(s), initial encounter (principal); X50.0XXA Overexertion from strenuous movement or load, initial encounter
CPT/HCPCS: 73140